=== PATIENT | female | born 1995 | race Caucasian/White ===

== ENCOUNTER 2018-09-04 17:56 | Emergency (ER) | payer OTHER ==
[2018-09-04 18:17] VITALS: BP 137/77
--- NOTE | 2018-09-04 18:25 | UC ---
UC General HPI - HPI Summary HPI Summary: PT STATES THE CONDOM BROKE DURING INTERCOURSE WITH HER RICARDOE TUESDAY NIGHT. SHE WOULD LIKE PLAN B. HER INSURANCE WOULD NOT COVER IT WITHOUT A PRESCRIPTION. NO ABDOMINAL PAIN, VAGINAL D/C OR CONCERN FOR CURRENT . PT STATES IS WITHIN 72 HOURS. - History of Current Complaint Chief Complaint: UCGeneralIllness Stated Complaint: PERSONAL Time Seen by Provider: 09/04/18 18:16 Hx Obtained From: Patient Hx Last Menstrual Period: 08/22/18 Pain Intensity: 0 Associated Signs & Symptoms: Negative: Abdominal Pain, Fever - Allergy/Home Medications Allergies/Adverse Reactions: Allergies Allergy/AdvReac Type Severity Reaction Status Date / Time No Known Allergies Allergy Verified 09/04/18 18:15 Home Medications: Home Medications NK [No Home Medications Reported] 09/04/18 [History Confirmed 09/04/18] PMH/Surg Hx/FS Hx/Imm Hx Previously Healthy: Yes - Surgical History Surgical History: None - Social History Lives: With Family Alcohol Use: None Substance Use Type: None Smoking Status (MU): Never Smoked Tobacco - Immunization History Vaccination Up to Date: Yes Review of Systems All Other Systems Reviewed And Are Negative: Yes Constitutional: Positive: Negative Skin: Positive: Negative Eyes: Positive: Negative ENT: Positive: Negative Respiratory: Positive: Negative Cardiovascular: Positive: Negative Gastrointestinal: Positive: Negative Genitourinary: Positive: Negative Motor: Positive: Negative Neurovascular: Positive: Negative Musculoskeletal: Positive: Negative Neurological: Positive: Negative Psychological: Positive: Negative Physical Exam Triage Information Reviewed: Yes Appearance: Well-Appearing Vital Signs: Initial Vital Signs Temp 98.8 F 09/04/18 18:14 Pulse 82 09/04/18 18:14 Resp 17 09/04/18 18:14 BP 137/77 09/04/18 18:14 Pulse Ox 99 09/04/18 18:14 Vital Signs Reviewed: Yes Eyes: Positive: Conjunctiva Clear ENT: Positive: Normal ENT inspection Neck: Positive: Supple, Nontender, No Lymphadenopathy Respiratory: Positive: Lungs clear, Normal breath sounds Cardiovascular: Positive: RRR, No Murmur Abdomen Description: Positive: Nontender, No Organomegaly, Soft. Negative: Distended Bowel Sounds: Positive: Present Musculoskeletal: Positive: ROM Intact Neurological: Positive: Alert Psychological: Positive: Age Appropriate Behavior Skin Exam: Normal Diagnostics - Laboratory Diagnostic Studies Completed/Ordered: URINE HCG=NEGATIVE Course/Dx - Diagnoses Provider Diagnosis: Normal exam Discharge - Sign-Out/Discharge Documenting (check all that apply): Patient Departure All imaging exams completed and their final reports reviewed: No Studies - Discharge Plan Condition: Stable Disposition: HOME Patient Education Materials: Levonorgestrel (By mouth) Referrals: [facility] [Outside] - As Soon As Possible - Billing Disposition and Condition Condition: STABLE Disposition: Home
[2018-09-04] MEDS ORDERED: Levonorgestrel 1.5 MG TAB PO ONE ×2 (18:42)
== END 2018-09-04 18:55 | disposition home or self-care (01) ==
LOC: UCCORT 17:56
DX: Z03.89 Encounter for observation for other suspected diseases and conditions ruled out (principal)
CPT/HCPCS: 84702; 99202; A9270-GY; G0463

== ENCOUNTER 2019-11-28 12:41 | Emergency (ER) | payer OTHER ==
[2019-11-28 14:14] VITALS: BP 104/67
[2019-11-28 15:07] LABS: Influenza A Molecular Negative (Negative); Influenza B Molecular Negative (Negative)
--- NOTE | 2019-11-28 15:17 | UC ---
Throat Pain/Nasal [place] HPI - HPI Summary HPI Summary: 24-year-old woman comes in with upper respiratory tract infection symptoms for 2 days. She's had clear rhinorrhea. Mild sore throat. Does have a cough no complaint of any chest congestion or shortness of breath. Patient is 14 weeks . No bodyaches. Has not taken any [id number] medications due to being . Symptoms are worse in the morning. - History of Current Complaint Chief Complaint: UCRespiratory Stated Complaint: COUGH, SORE THROAT Time Seen by Provider: 11/28/19 14:47 Hx Last Menstrual Period: 08/22/18 Pain Intensity: 0 - Allergies/Home Medications Allergies/Adverse Reactions: Allergies Allergy/AdvReac Type Severity Reaction Status Date / Time No Known Allergies Allergy Verified 11/28/19 14:11 Home Medications: Home Medications NK [No Home Medications Reported] 09/04/18 [History Confirmed 11/28/19] PMH/Surg Hx/FS Hx/Imm Hx Previously Healthy: Yes - Surgical History Surgical History: None - Family History Known Family History: Positive: Non-Contributory - Social History Alcohol Use: None Substance Use Type: None Smoking Status (MU): Never Smoked Tobacco - Immunization History Vaccination Up to Date: Yes Review of Systems All Other Systems Reviewed And Are Negative: Yes Constitutional: Positive: Other - SEE HPI Skin: Positive: Negative Eyes: Positive: Negative ENT: Positive: Sore Throat, Nasal Discharge, Sinus Congestion Respiratory: Positive: Cough Cardiovascular: Positive: Negative Gastrointestinal: Positive: Negative Motor: Positive: Negative Neurovascular: Positive: Negative Musculoskeletal: Positive: Negative Neurological/Mental Status: Positive: Negative Psychological: Positive: Negative Is Patient Immunocompromised?: No Physical Exam Appearance: No Pain Distress, Well-Nourished, Ill-Appearing - MILD Vital Signs: Initial Vital Signs Temp 98.2 F 11/28/19 14:08 Pulse 70 11/28/19 14:08 Resp 16 11/28/19 14:08 BP 104/67 11/28/19 14:08 Pulse Ox 100 11/28/19 14:08 Vital Signs Reviewed: Yes Eye Exam: Normal Eyes: Positive: Conjunctiva Clear ENT: Positive: Pharynx normal, Nasal congestion, Nasal drainage, TMs normal Neck: Positive: Supple Respiratory: Positive: Lungs clear, Normal breath sounds, No respiratory distress Cardiovascular: Positive: RRR Musculoskeletal: Positive: Strength Intact, ROM Intact Neurological: Positive: Alert, Muscle Tone Normal Psychological: Positive: Age Appropriate Behavior Skin Exam: Normal Throat Pain/Nasal Course/Dx - Differential Dx/Diagnosis Provider Diagnosis: Upper respiratory infection Discharge ED - Sign-Out/Discharge Documenting (check all that apply): Patient Departure All imaging exams completed and their final reports reviewed: No Studies - Discharge Plan Condition: Stable Disposition: HOME Patient Education Materials: Upper Respiratory Infection (ED) Forms: *Work Release Referrals: Yael Dinero MD [Primary Care Provider] - Additional Instructions: FOLLOW UP WITH YOUR DOCTOR IF NOT COMPLETELY IMPROVED. GET REEVALUATED SOONER IF NOT IMPROVED OR WORSE OR ANY QUESTIONS OR CONCERNS. - Billing Disposition and Condition Condition: STABLE Disposition: Home
== END 2019-11-28 15:23 | disposition home or self-care (01) ==
LOC: UCCORT 12:41
DX: O99.512 Diseases of the respiratory system complicating pregnancy, second trimester (principal); J06.9 Acute upper respiratory infection, unspecified; Z3A.14 14 weeks gestation of pregnancy
CPT/HCPCS: 87651; 99211; G0463